=== PATIENT | male | born 1965 | race Caucasian/White ===

== ENCOUNTER 2016-12-04 09:01 | Emergency (ER) | payer BC ==
--- NOTE | 2016-12-04 09:34 | UC ---
Respiratory Complaint HPI - History of Current Complaint Stated Complaint: COUGH,BODY ACHES,SKIN COMPLAINT Time Seen by Provider: 12/04/16 09:11 Hx Obtained From: Patient Onset/Duration: Sudden Onset, Lasting Days - 2, Still Present Severity Initially: Mild Severity Currently: Moderate Character: Cough: Productive Associated Signs And Symptoms: Positive: Fever, Chills, Wheezing, URI, Nasal Congestion, Sinus Discomfort Related History: Seasonal Allergies - Risk Factors Pulmonary Embolism Risk Factors: Negative Cardiac Risk Factors: Diabetes Tuberculosis Risk Factors: Diabetes - Allergies/Home Medications Allergies/Adverse Reactions: Allergies Allergy/AdvReac Type Severity Reaction Status Date / Time No Known Allergies Allergy Verified 12/04/16 09:12 Home Medications: Home Medications Atorvastatin* [Lipitor 20 MG*] 20 mg PO DAILY 12/04/16 [History Confirmed ] Desloratidine (NF) [Clarinex (NF)] 5 mg PO DAILY 12/04/16 [History Confirmed ] Lisinopril & Hydrochlorothiazi [Zestoretic 20-12.5 mg-] 1 tab PO DAILY 12/04/16 [History Confirmed 12/04/16] glipiZIDE TAB* [Glucotrol TAB*] 5 mg PO DAILY 12/04/16 [History Confirmed ] guaiFENesin ER TAB [Mucinex*] 600 mg PO BID PRN 12/04/16 [History Confirmed ] PMH/Surg Hx/FS Hx/Imm Hx Endocrine History Of: 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 Denies: Thyroid Disease Cardiovascular History Of: Reports: Hypertension Denies: Cardiac Disorders, Pacemaker/ICD Respiratory History Of: Denies: COPD, Asthma GI/ History Of: Denies: Ulcer - Surgical History Surgical History: Yes Surgery Procedure, Year, and Place: total L knee, carpal tunnel R wrist, RT KNEE RECONSTRUCTION 1989 - Family History Known Family History: Positive: None - Social History Occupation: Employed Full-time Lives: With Family Alcohol Use: Occasionally Substance Use Type: None Smoking Status (MU): Never Smoked Tobacco - Immunization History Most Recent Influenza Vaccination: not this season Review of Systems Constitutional: Fever, Chills Skin: Other - erythema and swelling left upper back ENT: Sore Throat, Nasal Discharge Respiratory: Cough Neurological: Headache All Other Systems Reviewed And Are Negative: Yes Physical Exam Triage Information Reviewed: Yes Appearance: No Pain Distress, Well-Nourished, Ill-Appearing Vital Signs: Initial Vital Signs Temp 97.1 F 12/04/16 09:17 Pulse 113 12/04/16 09:17 Resp 16 12/04/16 09:17 BP 112/74 12/04/16 09:17 Pulse Ox 97 12/04/16 09:17 Vital Signs Reviewed: Yes Eyes: Positive: Conjunctiva Inflamed ENT: Positive: Pharynx normal, TMs normal Neck exam: Normal Respiratory: Positive: Wheezing - Expiratory with cough Cardiovascular Exam: Normal Musculoskeletal Exam: Normal Neurological Exam: Normal Psychological Exam: Normal Skin: Positive: Other - Furuncle left upper back. Tender erythematous warm cyst. UC Diagnostic Evaluation - Laboratory O2 Sat by Pulse Oximetry: 97 Respiratory Course/Dx - Differential Dx/Diagnosis Differential Diagnosis/HQI/PQRI: Asthma, Lower Resp Infection, MRSA, Sinusitis Provider Diagnoses: Acute bronchospasm. Abscess upper back. Influenza A Discharge - Discharge Plan Condition: Stable Disposition: HOME Prescriptions: Oseltamivir CAP* [Tamiflu CAP*] 75 mg PO BID #10 cap Sulfamethox/Trimethoprim DS* [Bactrim DS 800/160 TAB*] 1 tab PO BID #20 tab predniSONE TAB* [Deltasone TAB*] 20 mg PO DAILY #18 tab Patient Education Materials: Furunculosis and Carbunculosis (ED), Sulfamethoxazole/Trimethoprim (By mouth), Bronchospasm (ED), Prednisone (By mouth), Influenza (ED), Oseltamivir (By mouth)
[2016-12-04 10:03] VITALS: BP 136/85
== END 2016-12-04 10:04 | disposition home or self-care (01) ==
LOC: UCCORT 09:01
DX: J09.X2 Influenza due to identified novel influenza A virus with other respiratory manifestations (principal); J98.01 Acute bronchospasm; L02.212 Cutaneous abscess of back [any part, except buttock and flank]; R50.9 Fever, unspecified; I10 Essential (primary) hypertension; E11.9 Type 2 diabetes mellitus without complications
CPT/HCPCS: 87502; 99212; G0463

== ENCOUNTER 2016-12-08 10:01 | Emergency (ER) | payer BC ==
[2016-12-08 10:17] VITALS: BP 140/88
[2016-12-08] MEDS ORDERED: Lidocaine 2% W/EPI 1:100,000* 20 ML MDV ONE (10:29)
[2016-12-08] MEDS ORDERED: Ibuprofen TAB* 600 MG PO ONE (11:07)
--- NOTE | 2016-12-08 11:15 | UC ---
Skin Complaint HPI - HPI Summary HPI Summary: 51 yo diabetic male with pea size cyst on back x years started to grow and get painful last week seen here and started on bactrim DS more painful now no fever flu better - History of Current Complaint Chief Complaint: UCSkin Time Seen by Provider: 12/08/16 10:29 Stated Complaint: RE-CHECK CYST ON BACK Hx Obtained From: Patient Onset/Duration: Gradual Onset, Lasting Days Timing: Constant Onset Severity: Mild Current Severity: Moderate Pain Intensity: 4 Pain Scale Used: 0-10 Numeric Location: Other - see image Aggravating: Touch Alleviating: Nothing Associated Signs & Symptoms: Positive: Tenderness - Allergy/Home Medications Allergies/Adverse Reactions: Allergies Allergy/AdvReac Type Severity Reaction Status Date / Time No Known Allergies Allergy Verified 12/08/16 10:16 Review of Systems Constitutional: Negative Skin: Negative Eyes: Negative ENT: Negative Respiratory: Negative Cardiovascular: Negative Gastrointestinal: Negative Genitourinary: Negative Motor: Negative Neurovascular: Negative Musculoskeletal: Negative Neurological: Negative Psychological: Negative All Other Systems Reviewed And Are Negative: Yes PMH/Surg Hx/FS Hx/Imm Hx Endocrine History Of: 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 Denies: Thyroid Disease Cardiovascular History Of: Reports: Hypertension Denies: Cardiac Disorders, Pacemaker/ICD Respiratory History Of: Denies: COPD, Asthma GI/ History Of: Denies: Ulcer - Surgical History Surgical History: Yes Surgery Procedure, Year, and Place: total L knee, carpal tunnel R wrist, RT KNEE RECONSTRUCTION 1989 - Family History Known Family History: Positive: Hypertension, Diabetes - Social History Alcohol Use: Occasionally Substance Use Type: None Smoking Status (MU): Never Smoked Tobacco - Immunization History Most Recent Influenza Vaccination: Fall 2014 Physical Exam Triage Information Reviewed: Yes Appearance: Well-Appearing, No Pain Distress, Well-Nourished Vital Signs: Initial Vital Signs Temp 96.1 F 12/08/16 10:13 Pulse 94 12/08/16 10:13 Resp 14 12/08/16 10:13 BP 140/88 12/08/16 10:13 Pulse Ox 97 12/08/16 10:13 Vital Signs Reviewed: Yes Eyes: Positive: Conjunctiva Clear ENT: Positive: Hearing grossly normal. Negative: Nasal congestion, Nasal drainage, Trismus, Muffled/hoarse voice Dental: Negative: Gross Decay/Caries @, Dental Fracture @ Respiratory: Positive: Lungs clear, Normal breath sounds Cardiovascular: Positive: RRR, No Murmur Musculoskeletal: Positive: Strength Intact Neurological: Positive: Alert Psychological Exam: Normal Skin Exam: Normal Skin: Positive: rashes Course/Dx - Diagnoses Provider Diagnoses: ABSCESS. INCISED AND DRAINED. INFECTED EPIDERMAL INCLUSION CYST Procedures - Procedure Summary Procedure Summary: INCISION AND DRAINAGE OF ABSCESS (BACK) PT EXPECTED I&D TO STERILE PREP ANEST WITH 2 CC 2% LIDO PLUS EP INCISED WITH 11 BLADE PROBED WITH HEMOSTATS 1 CC PUS EXPRESSED PART OF CYST REMOVED SOME SEBUM CULTURE OBTAINED STERILE DRESSING APPLIED Discharge - Discharge Plan Condition: Stable Disposition: HOME Patient Education Materials: Abscess Incision and Drainage (ED) Referrals: Agatha Bolanos MD [Primary Care Provider] - 2 Days Additional Instructions: warm compresses advil for pain recheck in 2 days if you are not markedly better continue your antibiotics a culture is pending Images Front/Back of Body, Lg (Barnes): 1 - LOCATION OF ABSCESS
== END 2016-12-08 11:25 | disposition home or self-care (01) ==
LOC: UCCORT 10:01
DX: L02.212 Cutaneous abscess of back [any part, except buttock and flank] (principal); L72.0 Epidermal cyst; E11.9 Type 2 diabetes mellitus without complications; Z96.652 Presence of left artificial knee joint
CPT/HCPCS: 10060; 87070; 87205; 87640; 87641; 99212; A9270-GY; G0463

== ENCOUNTER 2017-03-10 14:16 | Emergency (ER) | payer BC ==
--- NOTE | 2017-03-10 14:55 | UC ---
Respiratory Complaint HPI - HPI Summary HPI Summary: 3 days ago started having scratchy throat, then developed productive cough with yellow/brown sputum. Waking in the middle of the night with coughing and tight chest. Is feeling more tired than normal, called into work today. Denies hx of asthma or COPD. No major illness at home. No known fever, rash or nasal congestion. - History of Current Complaint Chief Complaint: UCRespiratory Stated Complaint: COUGH/ACHEY/RATTLING IN CHEST/THROAT Time Seen by Provider: 03/10/17 14:29 Hx Obtained From: Patient Onset/Duration: Gradual Onset, Lasting Days Timing: Constant Severity Initially: Mild Severity Currently: Moderate Character: Cough: Productive Aggravating Factors: Deep Breaths, Recumbent Position Alleviating Factors: Nothing Associated Signs And Symptoms: Negative: Fever, Chills, Hemoptysis, Dizziness, Sinus Discomfort - Allergies/Home Medications Allergies/Adverse Reactions: Allergies Allergy/AdvReac Type Severity Reaction Status Date / Time No Known Allergies Allergy Verified 03/10/17 14:21 PMH/Surg Hx/FS Hx/Imm Hx Previously Healthy: Yes - Surgical History Surgical History: Yes Surgery Procedure, Year, and Place: total L knee, carpal tunnel R wrist, RT KNEE RECONSTRUCTION 1989 - Family History Known Family History: Positive: Hypertension, Diabetes - Social History Occupation: Employed Full-time Lives: With Family Alcohol Use: None Substance Use Type: None Smoking Status (MU): Never Smoked Tobacco - Immunization History Most Recent Influenza Vaccination: Fall 2014 Review of Systems Constitutional: Fatigue Skin: Negative Eyes: Negative ENT: Negative Respiratory: Cough Cardiovascular: Negative Gastrointestinal: Negative Genitourinary: Negative Motor: Negative Neurovascular: Negative Musculoskeletal: Negative Neurological: Negative Psychological: Negative All Other Systems Reviewed And Are Negative: Yes Physical Exam Triage Information Reviewed: Yes Appearance: Well-Appearing, No Pain Distress, Well-Nourished Vital Signs: Initial Vital Signs Temp 97.9 F 03/10/17 14:23 Pulse 107 03/10/17 14:23 Resp 18 03/10/17 14:23 BP 133/85 03/10/17 14:23 Pulse Ox 99 03/10/17 14:23 Vital Signs Reviewed: Yes Eye Exam: Normal Eyes: Positive: Conjunctiva Clear ENT Exam: Normal ENT: Positive: Normal ENT inspection, Hearing grossly normal, Pharynx normal, TMs normal. Negative: Tonsillar swelling, Tonsillar exudate Dental Exam: Normal Neck exam: Normal Respiratory Exam: Other - occ cough Respiratory: Positive: Chest non-tender, Lungs clear, Normal breath sounds, No respiratory distress Cardiovascular: Positive: RRR - high 90s on exam Musculoskeletal Exam: Normal Neurological Exam: Normal Neurological: Positive: Alert Psychological Exam: Normal Skin Exam: Normal Diagnostic Evaluation - Laboratory O2 Sat by Pulse Oximetry: 99 Respiratory Course/Dx - Differential Dx/Diagnosis Provider Diagnoses: acute bronchitis Discharge - Discharge Plan Condition: Stable Disposition: HOME Prescriptions: Acetaminop/Codeine 30 MG TAB* [Tylenol/Codeine 30 MG TAB*] 1 - 2 tab PO BEDTIME PRN #15 tab MDD 2 PRN Reason: Cough Albuterol HFA INHALER* [Ventolin HFA Inhaler*] 1 - 2 puff INH Q4H PRN #1 mdi PRN Reason: wheeze, cough Patient Education Materials: Acute Bronchitis (ED) Referrals: Agatha Bolanos MD [Primary Care Provider] - 2 Weeks Additional Instructions: Call or return if you develop increasing fever, shortness of breath, chest pain , bloody sputum, or otherwise worsen. If you have not improved at all after several days, contact your primary care physician or return here.
[2017-03-10 14:56] VITALS: BP 133/85
== END 2017-03-10 14:52 | disposition home or self-care (01) ==
LOC: UCCORT 14:16
DX: J20.9 Acute bronchitis, unspecified (principal)
CPT/HCPCS: 99212; G0463

== ENCOUNTER 2018-08-29 07:39 | Emergency (ER) | payer BC ==
--- OUTSIDE RECORDS SUMMARY | 2018-08-29 07:51 | XMS REPORT | Continuity of Care Document ---
:1965 External Reference #:[id number] Author Name Vanita Ball Care Team Providers Name Role Phone Agatha Bolanos MD Care Team Information Financial Services Technician Unavailable Agatha Bolanos MD Primary Care Physician Unavailable Payers Type Date Identification Numbers Payment Provider Subscriber Effective: Policy Number: [id number] [facility] [employer] Travis Reeder 2014 PayID: [id number] [address] [address] [place] [address] Advance Directives Description No Information Available Problems Date Description Provider Status Onset: 07/18/2018 Allergic urticaria Petros Dhaliwal MD Active Onset: 07/18/2018 Allergy to other foods Petros Dhaliwal MD Active Onset: 07/18/2018 Allergic rhinitis due to pollen Petros Dhaliwal MD Active Onset: 07/18/2018 Allergic rhinitis Petros Dhaliwal MD Active Family History Description No Information Available Social History Type Date Description Comments Sex Unknown Home Environment Has a window air conditioner Home Environment Unfinished Basement Home Environment Negative For The basement is damp Home Environment The basement is damp and dehumidifier used Home Environment The floors are wood Home Environment The floors are carpeted Home Environment Uses forced air heating Home Environment Uses natural gas heating Smoke-Free Home is smoke-free Pets 1 cat Tobacco Use Start: Unknown Patient has never smoked Smoking Status Reviewed: 07/18/18 Patient has never smoked Allergies, Adverse Reactions, Alerts Description No Known Drug Allergies Medications Medication Date Status Form Strength Qnty SIG Indications Ordering Provider Mometasone 07/18 Active Suspension 50mcg/Act 17uni instill 2 L50.0 Christopher Furoate ts sprays Amanda Dhaliwal MD into each nostril once daily Desloratadine 07/18 Active Tablets 5mg 30tab take one L50.0 Christopher /2017 s tablet po Amanda Dhaliwal MD qam Xyzal Allergy 07/18 Active Tablets 5mg 30tab take 1 L50.0 Christopher 24HR s tablet (5 Amanda Dhaliwal MD mg) po qhs Glipizide-Metfor Active Tablets 5-500mg 2x aday Unknown min HCL 0000 Atorvastatin Active Tablets 20mg Unknown Calcium 0000 Lisinopril-[place] Active Tablets 20-12.5mg Unknown chlorothiazide Afluria Active Suspension Inject Unknown Quadrivalent Intramusc ularly Onetouch Verio Active Strips Unknown Oxycodone-Acetam Active Tablets 5-325mg take 1 Unknown inophen /0000 tablet by mouth every 4 hours if needed for pain maximum daily dose of 6 Ondansetron Active Tablets 4mg dissolve 0000 Dispers 1 tablet On Tongue every 6 to 8 hours if needed for nausea or vomiting Cyclobenzaprine Active Tablets 10mg take 1 Unknown HCL /0000 tablet three times a day if needed for muscle spasm Methylprednisolo Active TBPK 4mg take as Unknown ne 0000 directed on pack Hydrocodone-Acet Active Tablets 5-325mg take 1 Unknown aminophen /0000 tablet by mouth every 4 to 6 hours if needed for pain Penicillin V Active Tablets 500mg take 1 Unknown Potassium /0000 tablet by mouth every 6 hours Amoxicillin Hx Capsules 500mg take 1 Unknown /0000 capsule - three 08/01 times day Clindamycin HCL Hx Capsules 300mg take 1 Unknown /0000 capsule - by mouth 08/01 every hours Immunizations Description No Information Available Vital Signs Date Vital Result Comment 08/01/2018 8:32am BP Systolic 114 mmHg BP Diastolic 68 mmHg Height 69 inches 5'9" Weight 252.00 lb BMI (Body Mass Index) 37.2 kg/m2 Heart Rate 103 /min Respiratory Rate 14 /min Body Temperature 96.1 F O2 % BldC Oximetry 96 % 07/18/2018 9:20am BP Systolic 108 mmHg BP Diastolic 80 mmHg Height 69 inches 5'9" Weight 252.00 lb BMI (Body Mass Index) 37.2 kg/m2 Heart Rate 107 /min Respiratory Rate 18 /min Body Temperature 98.5 F O2 % BldC Oximetry 96 % Results Description No Information Available Procedures Date Code Description Status 07/18/2018 18536 Allergy Tests Percutaneous W/ Allergenic Extracts Completed Encounters Type Date Location Provider Dx Diagnosis Office Visit 07/18/2018 [place] Petros Dhaliwal, L50.0 Allergic urticaria 9:00a Z91.018 Allergy to other foods J30.1 Allergic rhinitis due to pollen J30.89 Other allergic rhinitis Plan of Treatment 07/18/2018 - Petros Dhaliwal MDL50.0 Allergic urticariaNew Medication: Mometasone Furoate 50 mcg/Act - instill 2 sprays into each nostril once dailyDesloratadine 5 mg - take one tablet po qamXyzal Allergy 24HR 5 mg - take 1 tablet (5 mg) po qhsZ91.018 Allergy to other cpysiE14.1 Allergic rhinitis due to jbmwepX06.89 Other allergic rhinitis
--- OUTSIDE RECORDS SUMMARY | 2018-08-29 07:51 | XMS REPORT | Continuity of Care Document ---
:1965 External Reference #:[id number] Author Name Petros Dhaliwal MD Address [address] [place] [address] Care Team Providers Name Role Phone Agatha Bolanos MD Care Team Information Radiology Physician Unavailable Agatha Bolanos MD Primary Care Physician Unavailable Payers Type Date Identification Numbers Payment Provider Subscriber Effective: Policy Number: [id number] [facility] [employer] Travis Reeder 2013 PayID: [id number] [address] [address] [place] [address] Advance Directives Description No Information Available Problems [...] Patient has never smoked Smoking Status Reviewed: 08/01/18 Patient has never smoked Allergies, Adverse Reactions, Alerts Description No Known Drug Allergies Medications Medication Date Status Form Strength Qnty SIG Indications Ordering Provider Mometasone 07/18 Active Suspension 50mcg/Act 17uni instill 2 L50.0 Changer Furoate ts sprays Amanda Dhaliwal MD into each nostril once daily Desloratadine 07/18 Active Tablets 5mg 30tab take one L50.0 Christopher s tablet po Amanda Dhaliwal MD qam Xyzal Allergy 07/18 Active Tablets 5mg 30tab take 1 L50.0 Christopher 24HR s tablet (5 Amanda Dhaliwal MD mg) by mouth every night at bedtime Glipizide-Metfor Active Tablets 5-500mg 2x aday Unknown min HCL /0000 Atorvastatin Active Tablets 20mg Unknown Calcium /0000 Lisinopril-[place] Active Tablets 20-12.5mg Unknown chlorothiazide / Afluria Active Suspension Inject Unknown Quadrivalent /0000 Intramusc ularly Onetouch Verio Active Strips Unknown /0000 Oxycodone-Acetam Active Tablets 5-325mg take 1 Unknown inophen /0000 tablet by mouth every 4 hours if needed for pain maximum daily dose of 6 Ondansetron Active Tablets 4mg dissolve Unknown /0000 Dispers 1 tablet On Tongue every 6 to 8 hours if needed for nausea or vomiting Cyclobenzaprine Active Tablets 10mg take 1 Unknown HCL /0000 tablet three times a day if needed for muscle spasm Methylprednisolo Active TBPK 4mg take as Unknown ne /0000 directed on pack Hydrocodone-Acet Active Tablets 5-325mg [...] Available Procedures Date Code Description Status 07/18/2018 40067 Allergy Tests Percutaneous W/ Allergenic Extracts Completed Encounters Type Date Location Provider Dx Diagnosis Office Visit 08/01/2018 8:30a BRIDGER Lock L50.0 Allergic urticaria Z91.018 Allergy to other foods J30.1 Allergic rhinitis due to pollen J30.89 Other allergic rhinitis Office Visit 07/18/2018 9:00a Kelechi Dhaliwal L50.0 Allergic urticaria Z91.018 Allergy to other foods J30.1 Allergic rhinitis due to pollen J30.89 Other allergic rhinitis Plan of Treatment Future Appointment(s):07/31/2019 8:30 am - [facility] at [id number] - Theodore Ann PAL50.0 Allergic urticariaComments:Patient skin testing showed 2+ reaction to beef and rosa. Patient has a normal CBC. Liver function test and thyroid studies are within normal range. LISA and sed rate results are both normal.Patient to stop consuming beef and rosa for 2 weeks. Patient will then reintroduce either beef and rosa by itself for 1 week and observe for any allergic reaction such as itchy skin or hives. If patient experiences no allergic reaction to the food that is reintroduced, then the patient is not allergic to this food.Patient will continue Clarinex and Xyzal as suppressive antihistamine therapy. Patient to continue Nasonex for prophylaxis of his nose.Saline nasal spray and HEPA air filter may help. Recommend dehumidifier for basement.Greater than 50% of the 25-minute visit was spent in discussion of the testing results and treatment options.Follow up:one yearZ91.018 Allergy to other eqcdvB85.1 Allergic rhinitis due to hcakguB86.89 Other allergic rhinitis
[2018-08-29 07:55] VITALS: BP 122/84
--- NOTE | 2018-08-29 08:08 | UC ---
Respiratory Complaint HPI - HPI Summary HPI Summary: cough x 6 days cough is productive, yellow sputum, worse at nigh + wheezing, nasal congestion, pnd, no fever, no chills - History of Current Complaint Chief Complaint: UCRespiratory Stated Complaint: COUGH CONGESTION SORE THROAT Time Seen by Provider: 08/29/18 07:44 Hx Obtained From: Patient Onset/Duration: Gradual Onset, Lasting Days - 6, Still Present Timing: Constant Severity Initially: Moderate Severity Currently: Moderate Pain Intensity: 0 Character: Cough: Productive Aggravating Factors: Exertion, Deep Breaths Alleviating Factors: Nothing Associated Signs And Symptoms: Positive: Wheezing, URI, Nasal Congestion. Negative: Dyspnea, Fever, Chills, Pleuritic Chest Pain, Hemoptysis, Dizziness, Calf Pain, Calf Swelling, Hoarseness, Sinus Discomfort - Allergies/Home Medications Allergies/Adverse Reactions: Allergies Allergy/AdvReac Type Severity Reaction Status Date / Time No Known Allergies Allergy Verified 08/29/18 07:51 PMH/Surg Hx/FS Hx/Imm Hx - Additional Past Medical History Additional PMH: high cholesterol, recurrent dental infection w/ PCN tx multiple times since Aug 2016 Endocrine History: Diabetes Cardiovascular History: Hypertension - Surgical History Surgical History: Yes Surgery Procedure, Year, and Place: total L knee, carpal tunnel R wrist, RT KNEE RECONSTRUCTION 1989 - Family History Known Family History: Positive: Hypertension, Diabetes - Social History Alcohol Use: None Substance Use Type: None Smoking Status (MU): Never Smoked Tobacco - Immunization History Most Recent Influenza Vaccination: Fall 2014 Review of Systems All Other Systems Reviewed And Are Negative: Yes Skin: Positive: Negative Eyes: Positive: Negative ENT: Positive: Nasal Discharge Respiratory: Positive: Cough Cardiovascular: Positive: Negative Gastrointestinal: Positive: Negative Genitourinary: Positive: Negative Is Patient Immunocompromised?: No Physical Exam Triage Information Reviewed: Yes Appearance: Well-Appearing, No Pain Distress, Obese Vital Signs: Initial Vital Signs Temp 97.9 F 08/29/18 07:52 Pulse 91 08/29/18 07:52 Resp 16 08/29/18 07:52 BP 122/84 08/29/18 07:52 Pulse Ox 97 08/29/18 07:52 Vital Signs Reviewed: Yes Eye Exam: Normal Eyes: Positive: Conjunctiva Clear ENT: Positive: Normal ENT inspection, Hearing grossly normal, Pharynx normal Neck exam: Normal Neck: Positive: Supple, Nontender, No Lymphadenopathy Respiratory: Positive: Chest non-tender, Lungs clear, Normal breath sounds Cardiovascular: Positive: RRR, No Murmur, Pulses Normal Skin Exam: Normal UC Diagnostic Evaluation - Laboratory O2 Sat by Pulse Oximetry: 97 Respiratory Course/Dx - Differential Dx/Diagnosis Provider Diagnoses: viral Bronchitis Discharge - Sign-Out/Discharge Documenting (check all that apply): Patient Departure All imaging exams completed and their final reports reviewed: No Studies - Discharge Plan Condition: Stable Disposition: HOME Prescriptions: Albuterol HFA INHALER* [Ventolin HFA Inhaler*] 2 puff INH Q6H PRN #1 mdi PRN Reason: Wheezing Codeine Phosphate/Guaifenesin [Cheratussin AC] 10 ml PO Q8H PRN #120 ml MDD 30 ml PRN Reason: Cough Patient Education Materials: Acute Bronchitis (ED) Referrals: Agatha Bolanos MD [Primary Care Provider] - 7 Days - Billing Disposition and Condition Condition: STABLE Disposition: Home
== END 2018-08-29 08:09 | disposition home or self-care (01) ==
LOC: UCCORT 07:39
DX: J20.8 Acute bronchitis due to other specified organisms (principal); E11.9 Type 2 diabetes mellitus without complications; I10 Essential (primary) hypertension
CPT/HCPCS: 99212; G0463

== ENCOUNTER 2019-03-28 19:15 | Emergency (ER) | payer BC ==
[2019-03-28 20:02] VITALS: BP 123/71
[2019-03-28 20:48] LABS: Influenza A Molecular NEGATIVE (Negative); Influenza B Molecular NEGATIVE (Negative)
[2019-03-28] MEDS ORDERED: Amoxicillin PO (*) 500 MG CAP PO ONE (20:49)
--- NOTE | 2019-03-28 20:52 | UC ---
Respiratory Complaint HPI - HPI Summary HPI Summary: 54 yo male ill x 1-2 days with sore throat/fever and productive cough no CP or SOB - History of Current Complaint Chief Complaint: UCGeneralIllness Stated Complaint: SORE THROAT,MIGRAINE,CONGESTION Time Seen by Provider: 03/28/19 20:18 Hx Obtained From: Patient Onset/Duration: Gradual Onset, Lasting Days Timing: Constant Severity Initially: Mild Severity Currently: Moderate Pain Intensity: 4 Pain Scale Used: 0-10 Numeric Character: Cough: Productive Aggravating Factors: Nothing Associated Signs And Symptoms: Positive: Sinus Discomfort - Allergies/Home Medications Allergies/Adverse Reactions: Allergies Allergy/AdvReac Type Severity Reaction Status Date / Time No Known Allergies Allergy Verified 03/28/19 20:02 Home Medications: Home Medications Levocetirizine Dihydrochloride [Xyzal Allergy 24Hr] 5 mg PO DAILY 03/28/19 [ History Confirmed 03/28/19] PMH/Surg Hx/FS Hx/Imm Hx Previously Healthy: Yes Endocrine History: Diabetes, Dyslipidemia Cardiovascular History: Hypertension Respiratory History: Asthma, Bronchitis, Pneumonia - Surgical History Surgical History: Yes Surgery Procedure, Year, and Place: total L knee, carpal tunnel R wrist, RT KNEE RECONSTRUCTION 1989 - Family History Known Family History: Positive: Hypertension, Diabetes - Social History Alcohol Use: None Substance Use Type: None Smoking Status (MU): Never Smoked Tobacco - Immunization History Most Recent Influenza Vaccination: Fall 2014 Review of Systems All Other Systems Reviewed And Are Negative: Yes Constitutional: Positive: Fever, Chills ENT: Positive: Nasal Discharge, Sinus Congestion Respiratory: Positive: Cough Cardiovascular: Positive: Negative Gastrointestinal: Positive: Negative Genitourinary: Positive: Negative Motor: Positive: Negative Neurovascular: Positive: Negative Musculoskeletal: Positive: Negative Neurological: Positive: Negative Psychological: Positive: Negative Physical Exam Triage Information Reviewed: Yes Appearance: Well-Appearing, No Pain Distress, Well-Nourished Vital Signs: Initial Vital Signs Temp 98.4 F 03/28/19 19:59 Pulse 105 03/28/19 19:59 Resp 18 03/28/19 19:59 BP 123/71 03/28/19 19:59 Pulse Ox 98 03/28/19 19:59 Vital Signs Reviewed: Yes Eyes: Positive: Conjunctiva Clear ENT: Positive: Hearing grossly normal, Pharyngeal erythema, Nasal congestion, TMs normal, Uvula midline. Negative: Nasal drainage, Tonsillar swelling, Tonsillar exudate, Trismus, Muffled voice, Hoarse voice, Sinus tenderness Dental Exam: Normal Neck: Positive: Supple, Nontender, No Lymphadenopathy Respiratory: Positive: Lungs clear, Normal breath sounds, No respiratory distress, No accessory muscle use, Rhonchi - with forced expiration Cardiovascular: Positive: RRR, No Murmur Abdomen Description: Positive: Nontender, No Organomegaly, Soft Musculoskeletal: Positive: No Edema Neurological: Positive: Alert Psychological Exam: Normal Skin Exam: Normal Respiratory Course/Dx - Course Course Of Treatment: strep and influenza (-) - Differential Dx/Diagnosis Provider Diagnosis: Bronchitis, Pharyngitis Discharge - Sign-Out/Discharge Documenting (check all that apply): Patient Departure All imaging exams completed and their final reports reviewed: No Studies - Discharge Plan Condition: Stable Disposition: HOME Prescriptions: Amoxicillin PO (*) [Amoxicillin 875 MG (*)] 875 mg PO BID #14 tab Patient Education Materials: Acute Bronchitis (ED) Forms: *Work Release Referrals: Agatha Bolanos MD [Primary Care Provider] - 5 Days (if not better ) - Billing Disposition and Condition Condition: STABLE Disposition: Home
== END 2019-03-28 21:01 | disposition home or self-care (01) ==
LOC: UCCORT 19:15
DX: J40 Bronchitis, not specified as acute or chronic (principal); J02.9 Acute pharyngitis, unspecified; E11.9 Type 2 diabetes mellitus without complications
CPT/HCPCS: 87651; 99212; A9270-GY; G0463

== ENCOUNTER 2019-10-08 18:50 | Emergency (ER) | payer BC ==
[2019-10-08 19:15] VITALS: BP 124/75
--- NOTE | 2019-10-08 19:23 | UC ---
Throat Pain/Nasal Juan HPI - HPI Summary HPI Summary: 54-year-old male who has been ill for over one week with head congestion, sinus pressure and cough as well as postnasal drainage. - History of Current Complaint Chief Complaint: UCRespiratory Stated Complaint: CONGESTION,COUGH,L EAR ACHE Time Seen by Provider: 10/08/19 19:05 Hx Obtained From: Patient Onset/Duration: Gradual Onset Severity: Mild Pain Intensity: 3 Cough: Nonproductive Associated Signs & Symptoms: Positive: Sinus Discomfort, Nasal Discharge - Allergies/Home Medications Allergies/Adverse Reactions: Allergies Allergy/AdvReac Type Severity Reaction Status Date / Time No Known Allergies Allergy Verified 10/08/19 19:10 Home Medications: Home Medications Atorvastatin* [Lipitor*] 10 mg PO DAILY 10/08/19 [History Confirmed 10/08/19] PMH/Surg Hx/FS Hx/Imm Hx Previously Healthy: Yes Endocrine History: Diabetes Cardiovascular History: Hypertension - Surgical History Surgical History: Yes Surgery Procedure, Year, and Place: total L knee, carpal tunnel R wrist, RT KNEE RECONSTRUCTION 1989. carpal tunnel LEFT wrist - Family History Known Family History: Positive: Hypertension, Diabetes - Social History Alcohol Use: None Substance Use Type: None Smoking Status (MU): Never Smoked Tobacco - Immunization History Most Recent Influenza Vaccination: Fall 2014 Review of Systems All Other Systems Reviewed And Are Negative: Yes ENT: Positive: Nasal Discharge, Sinus Congestion, Sinus Pain/Tenderness Respiratory: Positive: Cough - Nonproductive cough Is Patient Immunocompromised?: No Physical Exam Triage Information Reviewed: Yes Appearance: Well-Appearing, No Pain Distress, Well-Nourished Vital Signs: Initial Vital Signs Temp 97.9 F 10/08/19 19:10 Pulse 96 10/08/19 19:10 Resp 18 10/08/19 19:10 BP 124/75 10/08/19 19:10 Pulse Ox 98 10/08/19 19:10 Vital Signs Reviewed: Yes Eyes: Positive: Conjunctiva Clear ENT: Positive: Pharynx normal - Purulent yellow postnasal drainage., Nasal congestion, Nasal drainage - Yellow nasal coryza with inflamed turbinates mostly on the left., TMs normal, Sinus tenderness - Tender over the maxillary sinuses bilaterally., Uvula midline Neck: Positive: Supple, Nontender, No Lymphadenopathy Respiratory: Positive: Lungs clear, Normal breath sounds, No respiratory distress, No accessory muscle use Cardiovascular: Positive: RRR, No Murmur, Pulses Normal, Brisk Capillary Refill Musculoskeletal Exam: Normal Neurological Exam: Normal Psychological Exam: Normal Skin Exam: Normal Throat Pain/Nasal Course/Dx - Course Course Of Treatment: Patient is comfortable here. - Differential Dx/Diagnosis Provider Diagnosis: Sinusitis Discharge ED - Sign-Out/Discharge Documenting (check all that apply): Patient Departure All imaging exams completed and their final reports reviewed: No Studies - Discharge Plan Condition: Good Disposition: HOME Prescriptions: Benzonatate CAP* [Tessalon 100 MG CAP*] 100 mg PO TID PRN #30 cap PRN Reason: Cough DOXYcycline CAP(*) [DOXYcycline 100MG CAP(*)] 100 mg PO BID 10 Days #20 cap Patient Education Materials: Sinusitis (ED) Referrals: Agatha Bolanos MD [Primary Care Provider] - Additional Instructions: Increase fluids, no antacids, multivitamins or dairy products 2 hours before you take the doxycycline and 2 hours after you take it however take it with food. Definite follow-up with your primary care provider in 3 or 4 days if no improvement. - Billing Disposition and Condition Condition: GOOD Disposition: Home
== END 2019-10-08 19:32 | disposition home or self-care (01) ==
LOC: UCCORT 18:50
DX: J32.9 Chronic sinusitis, unspecified (principal); R05 Cough; H92.02 Otalgia, left ear; E11.9 Type 2 diabetes mellitus without complications; I10 Essential (primary) hypertension
CPT/HCPCS: 99212; G0463